=== PATIENT | female | born 1945 | race Caucasian/White ===

== ENCOUNTER 2020-03-22 09:44 | Outpatient (CLI) | payer OTHER ==
[~2020-03-22 09:44] MED LIST: ALTACE5 MG; LOSARTAN-HCTZ1 EAC2; ZOCOR20 MG
== END 2020-03-22 09:50 | disposition home or self-care (01) ==
LOC: LAB 09:44
DX: N20.0 Calculus of kidney (principal)

== ENCOUNTER 2020-03-22 11:07 | Outpatient (CLI) | payer OTHER | END 2020-03-22 11:16 | disposition home or self-care (01) | LOC: TOM 11:07 | DX: R10.84 Generalized abdominal pain (principal) ==

== ENCOUNTER → 2020-04-02 12:40 | Outpatient (CLI) | payer OTHER | END | disposition home or self-care (01) | LOC: LAB 12:40 | DX: N20.0 Calculus of kidney (principal); E11.9 Type 2 diabetes mellitus without complications ==

== ENCOUNTER → 2020-04-04 09:32 | Outpatient (CLI) | payer OTHER | END | disposition home or self-care (01) | LOC: LAB 09:32 | DX: I10 Essential (primary) hypertension (principal); E11.9 Type 2 diabetes mellitus without complications; E03.8 Other specified hypothyroidism; E78.2 Mixed hyperlipidemia ==

== ENCOUNTER → 2020-04-04 | Outpatient (CLI) | payer OTHER | END | disposition home or self-care (01) | LOC: SONOGRAMA 08:22 | DX: R10.84 Generalized abdominal pain (principal) ==

== ENCOUNTER 2020-04-23 08:21 | Outpatient (CLI) | payer OTHER | END 2020-04-23 08:36 | disposition home or self-care (01) | LOC: RAD 08:21 → LAB 08:21 | PROVIDERS: ATTEND Specialist | DX: K82.4 Cholesterolosis of gallbladder (principal); E11.9 Type 2 diabetes mellitus without complications; I10 Essential (primary) hypertension; Z01.812 Encounter for preprocedural laboratory examination ==

== ENCOUNTER 2020-04-23 09:46 | Inpatient (IN) | payer OTHER ==
[~2020-04-23] VITALS: Ht 157.5 cm; Wt 88.0 kg
[2020-05-02] MEDS ORDERED: GLIMEPIRIDE4 M1 PO (08:50)
[2020-05-02] MEDS ORDERED: METFORMIN HCL500 M4 PO (08:50)
[2020-05-02] MEDS ORDERED: LOSARTAN POTAS100 MG PO (08:50)
== END 2020-05-03 12:52 | disposition home or self-care (01) | DRG 416 ==
LOC: O/R 05-02 05:34 → SURG 05-02 05:34 → SURH 05-02 08:45 → SURG 05-02 14:18
PROVIDERS: ADMIT Specialist; ATTEND Specialist
PROC: 0FJ44ZZ Inspection of Gallbladder, Percutaneous Endoscopic Approach (ICD-10-PCS; 2020-05-02)
PROC: 0FT40ZZ Resection of Gallbladder, Open Approach (ICD-10-PCS; principal; 2020-05-02 09:45)
DX: K81.1 Chronic cholecystitis (principal); D13.5 Benign neoplasm of extrahepatic bile ducts

== ENCOUNTER 2021-08-12 13:37 | Outpatient (CLI) | payer OTHER ==
[~2021-08-12 13:37] MED LIST changes: +GLIMEPIRIDE4 M1 PO; +LOSARTAN POTAS100 MG PO; +METFORMIN HCL500 M4 PO
== END 2021-08-12 13:48 | disposition home or self-care (01) ==
LOC: MAMO-SONO 13:37
PROVIDERS: ATTEND Internal Medicine Cardiovascular Disease
DX: N64.59 Other signs and symptoms in breast (principal); Z12.31 Encounter for screening mammogram for malignant neoplasm of breast; Z80.8 Family history of malignant neoplasm of other organs or systems